=== PATIENT | male | born 1970 | race Two or more races ===

== ENCOUNTER 2025-05-09 18:09 | Inpatient (IN) | payer OTHER ==
[~2025-05-09] VITALS: Ht 167.6 cm; Wt 72.0 kg
--- NOTE | 2025-05-09 18:34 | ED.PDOC ---
General HPI Comments A 54 year-old male presents to the ED with a chief complaint of R testicular pain with associated swelling for X6 months. Patient states he is currently diagnosed with Hydrocele. Patient additionally states he lost his insurance and has not followed up with PCP or specialist. Patient has no further complaints at this time and otherwise denies further associated symptoms of N/V, fever, chills, abdominal pain, or hematuria. Patient states the testicle had gone down significantly until approximately one week ago when it started to get larger in and is now extremely large making it difficult to sit down. Chief Complaint: Testicle Pain Time Seen by MD: 18:23 Reviewed notes: Nurses Notes, Medications, Allergies Allergies: Coded Allergies: NO KNOWN ALLERGIES (Unverified , 05/09/25) Information Source: Patient Mode of Arrival: Ambulatory Severity: Moderate Timing: Months Duration: Since onset Prehospital treatment: None Onset: Spontaneous Symptoms: None History of: Other (Testicular hydrocele) Location male: R Scrotum Penile discharge: None Modifying factors: None associated signs and symptoms: Other (R sided testicular pain ) Past Medical History PAST MEDICAL HISTORY: Denies Past Medical History (Other): History of testicular hydrocele Surgical History: Denies all surgeries Family History Family History: Reviewed,noncontributory to illness, No family hx of Cancer, No family hx of DM, No family hx of Heart roxanna, No family hx of HTN, No family hx ofKidney roxanna, No family hx of Liver roxanna, No family hx of Lung roxanna, No family hx of Stroke Social History Smoker: Non-Smoker Alcohol: Denies ETOH Use Drugs: Denies Drug Use Lives In: Home Constitutional: denies: chills, diaphoresis, fatigue, fever, malaise, sweats, weakness, others EENTM: denies: blurred vision, double vision, ear bleeding, ear discharge, ear drainage, ear pain, ear ringing, eye pain, eye redness, hearing loss, mouth pain, mouth swelling, nasal discharge, nose bleeding, nose congestion, nose pain, photophobia, tearing, throat pain, throat swelling, voice changes, others Respiratory: denies: cough, hemoptysis, orthopnea, SOB at rest, shortness of breath, SOB with excertion, stridor, wheezing, others Cardiovascular: denies: chest pain, dizzy spells, diaphoresis, Dyspnea on exertion, edema, irregular heart beat, left arm pain, lightheadedness, palpitations, PND, syncope, others Gastrointestinal: denies: abdomen distended, abdominal pain, blood streaked bowels, constipated, diarrhea, dysphagia, difficulty swallowing, hematemesis, melena, nausea, poor appetite, poor fluid intake, rectal bleeding, rectal pain, vomiting, others Genitourinary: reports: testicle pain (Right Sided with Swelling ); denies: burning, dysuria, flank pain, frequency, hematuria, incontinence, penile discharge, penile sore, pain, testicle swelling, urgency, others Neurological: denies: dizziness, fainting, headache, left sided numbness, left sided weakness, numbness, paresthesia, pre-existing deficit, right sided numbness, right sided weakness, seizure, speech problems, tingling, tremors, weakness, others Musculoskeletal: denies: back pain, gout, joint pain, joint swelling, muscle pain, muscle stiffness, neck pain, others Integumetry: denies: bruises, change in color, change in hair/nails, dryness, laceration, lesions, lumps, rash, wounds, others Hematologic/Lymphatic: denies: anemia, blood clots, easy bleeding, easy bruising, swollen glands, others Endocrine: denies: excessive hunger, excessive sweating, excessive thirst, excessive urination, flushing, intolerance to cold, intolerance to heat, unexp lained weight gain, unexplained weight loss, others Psychiatric: denies: anxiety, bipolar disorder, depression, hopeless, panic disorder, schizophrenia, sleepless, suicidal, others All Other Systems: Reviewed and Negative Physical Exam General Appearance: Moderate Distress ([id number] distress due to right- sided testicular pain concerns.), Normal HEENT: Normal ENT Inspection, Pharynx Normal, TMs Normal Neck: Full Range of Motion, Non-Tender, Normal, Normal Inspection Respiratory: Chest Non-Tender, Lungs Clear, No Accessory Muscle Use, No Respiratory Distress, Normal Breath Sounds Cardiovascular: No Edema, No JVD, No Murmur, No Gallop, Normal Peripheral Pulses, Regular Rate/Rhythm Breast Exam: Deferred Gastrointestinal: No Organomegaly, Non Tender, No Pulsatile Mass, Normal Bowel Sounds, Soft Genitalia: Other (Patient has an extremely large and exquisitely tender right testicle without noted erythema. No definitive epididymitis noted. No penile discharge or noted chancres.) Pelvic: Deferred Rectal: Deferred Extremities: No calf tenderness, Normal capillary refill, Normal inspection, Normal range of motion, Non-tender, No pedal edema Neurologic: Alert, No Motor Deficits, Normal Affect, Normal Mood, No Sensory Deficits Cerebellar Function: Normal Reflexes: Normal Skin: Dry, Normal Color, Warm Lymphatic: No Adenopathy Was a procedure done? Was a procedure done?: No Differential Diagnosis Kidney stone (Female): N/A Penile/Scrotal: Foreign Body, Prostatitis, Testicular Torsion, Urolithiasis, Urinary Retention, Other (Hydrocele, epididymitis) X-Ray, Labs, Meds, VS Vital Signs Date Time Temp Pulse Resp B/P (MAP) Pulse Ox O2 Delivery O2 Flow Rate FiO2 05/09/25 20:41 98.9 86 19 127/99 (108) 96 98.9 05/09/25 20:41 86 19 96 Room Air 05/09/25 18:24 98.1 83 18 143/99 (114) 96 98.1 Lab Test 05/09/25 18:49 Range/Units White Blood Count 8.7 4.4-10.8 10^3/uL Red Blood Count 5.21 4.5-5.90 10^6/uL Hemoglobin 15.6 13.5-17.5 g/dL Hematocrit 45.9 41.0-53.0 % Mean Corpuscular Volume 88.1 80.0-100.0 fL Mean Corpuscular Hemoglobin 29.9 28.0-32.0 pg Mean Corpuscular Hemoglobin Concent 34.0 32.0-36.0 g/dL Red Cell Distribution Width 13.5 11.8-14.3 % Platelet Count 245 140-450 10^3/uL Mean Platelet Volume 7.9 6.9-10.8 fL Neutrophils (%) (Auto) 59.7 37.0-80.0 % Lymphocytes (%) (Auto) 27.9 10.0-50.0 % Monocytes (%) (Auto) 9.4 0.0-12.0 % Eosinophils (%) (Auto) 1.7 0.0-7.0 % Basophils (%) (Auto) 1.3 0.0-2.0 % Neutrophils # (Auto) 5.2 1.6-8.6 10 ^3/uL Lymphocytes # (Auto) 2.4 0.4-5.4 10 ^3/uL Monocytes # (Auto) 0.8 0-1.3 10 ^3/uL Eosinophils # (Auto) 0.1 0-0.8 10 ^3/uL Basophils # (Auto) 0.1 0-0.2 10 ^3/uL Nucleated Red Blood Cells 0.0 % Sodium Level 141 136-145 mmol/L Potassium Level 4.6 3.5-5.1 mmol/L Chloride Level 102 98-107 mmol/L Carbon Dioxide Level 30 20-31 mmol/L Anion Gap 9 5-15 Blood Urea Nitrogen 17 9-23 mg/dL Creatinine 0.89 0.700-1.30 mg/dL Glomerular Filtration Rate Calc 103 >90 mL/min BUN/Creatinine Ratio 19.1 10.0-20.0 Serum Glucose 107 H 74-106 mg/dL Calcium Level 9.8 8.7-10.4 mg/dL Total Bilirubin 0.4 0.2-1.0 mg/dL Aspartate Amino Transferase (AST) 42 H 13-40 U/L Alanine Aminotransferase (ALT) 79 H 7-40 U/L Alkaline Phosphatase 74 46-116 U/L Total Protein 7.2 5.7-8.2 g/dL Albumin 4.5 3.2-4.8 g/dL Current Medications Medications (Trade) Dose Ordered Sig/Patric Route Start Time Stop Time Status Last Admin Ketorolac Tromethamine (Toradol Injection) 30 mg ONCE ONCE IM 05/09/25 18:30 05/09/25 18:31 DC 05/09/25 20:31 X-Ray, Labs, Meds, VS Comment All studies reviewed in the ED were evaluated by me personally. Testicular ultrasound revealed a large right-sided hydrocele measuring 110 mL. No evidence of torsion, epididymitis or orchitis. This patient has no definitive were available follow up and therefore, patient will be admitted for urologic consult and possible surgical drainage of his significant right-sided hydrocele. Time of 1ST Reevaluation: 21:08 Reevaluation 1ST: Improved Consultation: PCP, Urology Patient Education/Counseling: Diagnosis, Treatment Family Education/Counseling: Diagnosis, Treatment, No Family Present Medical Screening: No EMC Exist At This Time SEPSIS Sepsis Screen Date sepsis recognized/suspect: May 09, 2025 Time Sepsis recognized/suspect: 1814 Recent Procedure: No On Antibiotic Therapy: No Respiratory Rate >20: No Heart Rate >90: No Temp<36 C (96.8 F) or >38.3 C: No SBP <90 or MAP <65 mmHG: No New Acute Mental Status Change: No Is the patient on CPAP, BIPAP,: No Physician Orders Testicular Ultrasound (05/09/25 18:20) Urinalysis (05/09/25 18:20) Vital Signs Date Time Temp Pulse Resp B/P (MAP) Pulse Ox O2 Delivery O2 Flow Rate FiO2 05/09/25 20:41 98.9 86 19 127/99 (108) 96 98.9 05/09/25 20:41 86 19 96 Room Air 05/09/25 18:24 98.1 83 18 143/99 (114) 96 98.1 Laboratory Tests Test 05/09/25 18:49 White Blood Count 8.7 10^3/uL (4.4-10.8) Medications Medications Dose Ordered Sig/Patric Route Start Time Stop Time Status Last Admin Dose Admin Ketorolac Tromethamine 30 mg ONCE ONCE IM 05/09/25 18:30 05/09/25 18:31 DC 05/09/25 20:31 Departure 1 Departure Time of Disposition: 21:08 Impression: Primary Impression: Hydrocele of testis Additional Impression: Intractable pain Disposition: ADMITTED INPATIENT Condition: Stable Discharged With: Self Critical Care Note Critical Care Time?: No Stability Stability form required: No Heart Score Heart Score: Heart Score Response (Comments) Value History N/A 0 EKG N/A 0 Age N/A 0 Risk Factors N/A 0 Troponin N/A 0 Total 0 I personally scribed for RODERICK VOSS PAC ([email or web address]) on 05/09/25 at 18:34. Electronically submitted by Heidi [email or web address]). RODERICK VOSS PAC May 09, 2025 18:34
[2025-05-09 18:58] LABS: Hematocrit 45.9 % (41.0-53.0); Hemoglobin 15.6 g/dL (13.5-17.5); Mean Corpuscular Hemoglobin 29.9 pg (28.0-32.0); Mean Corpuscular Volume 88.1 fL (80.0-100.0); Nucleated Red Blood Cells % 0.0 %
[2025-05-09 19:14] LABS: Alanine Aminotransferase 79 U/L (7-40); Albumin 4.5 g/dL (3.2-4.8); Alkaline Phosphatase 74 U/L (46-116); Anion Gap 9 (5-15); BUN/Creatinine Ratio 19.1 (10.0-20.0); Bilirubin, Total 0.4 mg/dL (0.2-1.0); Blood Urea Nitrogen 17 mg/dL (9-23); Calcium 9.8 mg/dL (8.7-10.4); Carbon Dioxide 30 mmol/L (20-31); Chloride 102 mmol/L (98-107); Glucose 107 mg/dL (74-106); Potassium 4.6 mmol/L (3.5-5.1); Sodium 141 mmol/L (136-145); Total Protein 7.2 g/dL (5.7-8.2)
--- NOTE | 2025-05-09 19:43 | DVH ---
ULTRASOUND OF SCROTUM AND CONTENTS. INDICATION: Right-sided testicular swelling COMPARISON: None TECHNIQUE: Multiple real-time grayscale sonographic and color and duplex Doppler images of the scrotu m and its contents were obtained. FINDINGS: RIGHT TESTICLE: Measures 5.2 X 3 X 2.3 cm. LARGE RIGHT HYDROCELE CONTAINS 810 ML OF FLUID. Right epididymis measures 18.4 mm LEFT TESTICLE: Measures 5 X 2.8 X 3.3 cm. LEFT EPIDIDYMIS MEASURES 12.7 MM THERE IS A 4 MM EPIDIDYMAL CYST. Both testicles demonstrate homogeneous echotexture without evidence of focal lesions. The right epididymal head measures 18.4 mm. The left epididymal head measures 12.7 mm. Subsequent color and duplex Doppler interrogation of the testes demonstrated symmetric normal vascula r flow to both testicles. No focal areas of hyperemia were seen. IMPRESSION: 1. No evidence of torsion, epididymitis, and/or orchitis. 2. Right testicle measures 5.2 cm in length. Left testicle measures 5 cm in length. 3. Large right hydrocele measuring 810 mL 4. Right epididymis 18.4 mm 5. Left epididymis measures 12.7 mm. It contains a 4 mm cyst.
[2025-05-09] MEDS: KETOROLAC TROMETH 60MG/2ML VIAL IM ONE (20:31)
[2025-05-09] MEDS: HYDROcodone-ACET 5/325MG TAB PO ONE (20:40)
[2025-05-09] MEDS ORDERED: MORPHINE SULFATE INJ 2 MG/ml SYRG IV PRN ×2 (21:45→22:30)
[2025-05-09] MEDS ORDERED: ONDANSETRON HCL 4 MG/2 ML VIAL IV PRN (21:45)
[2025-05-09] MEDS ORDERED: ACETAMINOPHEN 325 MG TAB PO PRN (21:45)
[2025-05-09] MEDS ORDERED: DOCUSATE SOD 100 MG CAP PO PRN (21:45)
[2025-05-09] MEDS ORDERED: HYDROcodone-ACET 5/325MG TAB PO PRN (21:45)
[2025-05-09 21:57] LABS: Urine Protein, UAD Negative (Negative)
[2025-05-09] MEDS: SODIUM CHLOR 0.9% PF (SALINE LOCK) 10ML VIAL/SYR IV SCH (22:16)
--- NOTE | 2025-05-09 22:19 | DVHHP2 ---
History of Present Illness Reason for Visit: Hydrocele of testis History of Present Illness The patient is a 54-year-old male with past medical history of testicular hydrocele who presented to [facility] ED with complaint of right testicular pain associated with swelling for the past 6 months. Patient reports he is currently diagnosed with hydrocele but lost his insurance and unable to follow-up with PCP or genitourinary specialist. Patient was seen and evaluated in the ED, laboratory data shows WBC 8.7, platelets 245, sodium 141, potassium 4.6, BUN 17, creatinine 0.89, glucose 107, calcium 9.8, AST 42, ALT 79, blood pressure 127/99, heart rate 86, temperature 98.7 F, O2 saturation 98% on room air. Testicular ultrasound revealing right testicular measuring 5.2 cm in length, left testicular measures 5 cm in length; large right hydrocele measuring 810 mL, right epididymis 18.4 mm, left epididymis measures 12.7 mm, eight contains a 4 mm cyst. Urology will follow the patient, please see medication orders section in the computer. On my assessment, patient denied chest pain, no headache, no dizziness, no shortness of breath, no abdominal pain, no diarrhea, no nausea, no vomiting, no fever, no chills. Patient was admitted for further evaluation and medical management. Past Medical History Testicular hydrocele Past Surgical History Denies all surgeries Family History Reviewed, noncontributory to the management of this case. Past Social History The patient lives at home, denies smoking, alcohol or illicit drugs abuse. Review of Systems Constitutional: No: Fever, Chills, Sweats, Weakness, Malaise, Other Eyes: No: Pain, Vision change, Conjunctivae inflammation, Eyelid inflammation, Other, Redness ENT: No: Ear pain, Ear discharge, Nose pain, Nose discharge, Nose congestion, Mouth pain, Mouth swelling, Throat pain, Throat swelling, Other Respiratory: No: Cough, Dry, Shortness of breath, SOB with excertion, Wheezing, Hemoptysis, Pleuritic Pain, Sputum, Wheezing, Other Cardiovascular: No: Chest Pain, Palpitations, Orthopnea, Paroxysmal Noc. Dyspnea, Edema, Lt Headedness, Other Gastrointestinal: No: Nausea, Vomiting, Abdominal Pain, Diarrhea, Constipation, Melena, Hematochezia, Other Genitourinary: No Dysuria, No Frequency, No Incontinence, No Hematuria, No Retention; Other (Testicular pain, right Sided with Swelling.) Musculoskeletal: No: other, neck pain, shoulder pain, arm pain, back pain, hand pain, leg pain, foot pain Skin: No: Rash, Lesions, Jaundice, Bruising, Other Neurological: No: Weakness, Numbness, Incoordination, Change in speech, Confusion, Seizures, Other Allergies: Coded Allergies: NO KNOWN ALLERGIES (Unverified , 05/09/25) Medications Current Medications Medications Dose Ordered Sig/Patric Route Start Time Stop Time Status Last Admin Dose Admin Sodium Chloride 10 ml Q8HR IV 05/09/25 22:00 05/09/25 22:16 10 ML Acetaminophen/ Hydrocodone Bitart 1 tab Q4HP PRN PO 05/09/25 21:45 Ondansetron HCl 4 mg Q4HP PRN IV 05/09/25 21:45 Docusate Sodium 100 mg BIDPRN PRN PO 05/09/25 21:45 Acetaminophen 650 mg Q6HP PRN PO 05/09/25 21:45 Morphine Sulfate 2 mg Q4HPRN PRN IV 05/09/25 21:45 Exam Vital Signs Vital Signs Date Time Temp Pulse Resp B/P (MAP) Pulse Ox O2 Delivery O2 Flow Rate FiO2 05/09/25 20:41 98.9 86 19 127/99 (108) 96 98.9 05/09/25 20:41 Room Air General Appearance: Alert, Oriented X3, Cooperative, No acute distress HEENT: Atraumatic, PERRLA, EOMI, Mucous membr. moist/pink Respiratory: Clear to auscultation, Normal air movement Cardiovascular: Regular rate, Normal S1, Normal S2, No murmurs Abdominal: Normal bowel sounds, Soft, No tenderness, No hepatospenomegaly, No masses Extremities: No clubbing, No cyanosis, No edema, Normal pulses, No tenderness/swelling Skin: No rashes, No breakdown, No significant lesion Neuro: Normal gait, Normal speech, Strength at 5/5 X4 ext, Normal tone, Sensation intact, Cranial nerves 3-12 NL, Reflexes 2+ Psych/Mental Status: Mental status NL, Mood NL Labs/Xrays Labs Test 05/09/25 20:28 05/09/25 18:49 Range/Units Urine Color Light-yellow Yellow Urine Clarity Clear Clear Urine pH 5.5 5.0-9.0 Urine Specific Belva 1.023 1.001-1.035 Urine Protein Negative Negative Urine Ketones Negative Negative Urine Blood Negative Negative /uL Urine Nitrite Negative Negative Urine Bilirubin Negative Negative Urine Urobilinogen Normal Negative mg/dL Urine Leukocyte Esterase Negative Negative /uL Urine RBC <1 0 - 3 /hpf Urine Microscopic WBC < 1 0-3 /HPF Urine Squamous Epithelial Cells None seen <5 /hpf Urine Bacteria Few H None Seen /hpf Urine Mucus Few None Seen Urine Glucose Normal Normal mg/dL White Blood Count 8.7 4.4-10.8 10^3/uL Red Blood Count 5.21 4.5-5.90 10^6/uL Hemoglobin 15.6 13.5-17.5 g/dL Hematocrit 45.9 41.0-53.0 % Mean Corpuscular Volume 88.1 80.0-100.0 fL Mean Corpuscular Hemoglobin 29.9 28.0-32.0 pg Mean Corpuscular Hemoglobin Concent 34.0 32.0-36.0 g/dL Red Cell Distribution Width 13.5 11.8-14.3 % Platelet Count 245 140-450 10^3/uL Mean Platelet Volume 7.9 6.9-10.8 fL Neutrophils (%) (Auto) 59.7 37.0-80.0 % Lymphocytes (%) (Auto) 27.9 10.0-50.0 % Monocytes (%) (Auto) 9.4 0.0-12.0 % Eosinophils (%) (Auto) 1.7 0.0-7.0 % Basophils (%) (Auto) 1.3 0.0-2.0 % Neutrophils # (Auto) 5.2 1.6-8.6 10 ^3/uL Lymphocytes # (Auto) 2.4 0.4-5.4 10 ^3/uL Monocytes # (Auto) 0.8 0-1.3 10 ^3/uL Eosinophils # (Auto) 0.1 0-0.8 10 ^3/uL Basophils # (Auto) 0.1 0-0.2 10 ^3/uL Nucleated Red Blood Cells 0.0 % Sodium Level 141 136-145 mmol/L Potassium Level 4.6 3.5-5.1 mmol/L Chloride Level 102 98-107 mmol/L Carbon Dioxide Level 30 20-31 mmol/L Anion Gap 9 5-15 Blood Urea Nitrogen 17 9-23 mg/dL Creatinine 0.89 0.700-1.30 mg/dL Glomerular Filtration Rate Calc 103 >90 mL/min BUN/Creatinine Ratio 19.1 10.0-20.0 Serum Glucose 107 H 74-106 mg/dL Calcium Level 9.8 8.7-10.4 mg/dL Total Bilirubin 0.4 0.2-1.0 mg/dL Aspartate Amino Transferase (AST) 42 H 13-40 U/L Alanine Aminotransferase (ALT) 79 H 7-40 U/L Alkaline Phosphatase 74 46-116 U/L Total Protein 7.2 5.7-8.2 g/dL Albumin 4.5 3.2-4.8 g/dL PATIENT: BOB DELGADO ACCT: [id number] UNIT: [id number] : 1970 LOC: ER ROOM / BED: / AGE / SEX: 54 / M ADM STATUS: REG ER SERVICE [id number] ORDERING PHYSICIAN: RODERICK VOSS PAC PROCEDURE(s): TESUS - TESTICULAR ULTRASOUND REASON: Right-sided testicular swelling ORDER NUMBER(s): [id number], ACCESSION NUMBER(s): [id number] ULTRASOUND OF SCROTUM AND CONTENTS. INDICATION: Right-sided testicular swelling COMPARISON: None TECHNIQUE: Multiple real-time grayscale sonographic and color and duplex Doppler images of the scrotum and its contents were obtained. FINDINGS: RIGHT TESTICLE: Measures 5.2 X 3 X 2.3 cm. LARGE RIGHT HYDROCELE CONTAINS 810 ML OF FLUID. Right epididymis measures 18.4 mm LEFT TESTICLE: Measures 5 X 2.8 X 3.3 cm. LEFT EPIDIDYMIS MEASURES 12.7 MM THERE IS A 4 MM EPIDIDYMAL CYST. Both testicles demonstrate homogeneous echotexture without evidence of focal lesions. The right epididymal head measures 18.4 mm. The left epididymal head measures 12.7 mm. Subsequent color and duplex Doppler interrogation of the testes demonstrated symmetric normal vascular flow to both testicles. No focal areas of hyperemia were seen. IMPRESSION: 1. No evidence of torsion, epididymitis, and/or orchitis. 2. Right testicle measures 5.2 cm in length. Left testicle measures 5 cm in length. 3. Large right hydrocele measuring 810 mL 4. Right epididymis 18.4 mm 5. Left epididymis measures 12.7 mm. It contains a 4 mm cyst. SEPSIS Sepsis Screen Date sepsis recognized/suspect: May 09, 2025 Time Sepsis recognized/suspect: 1814 Recent Procedure: No On Antibiotic Therapy: No Respiratory Rate >20: No Heart Rate >90: No Temp<36 C (96.8 F) or >38.3 C: No SBP <90 or MAP <65 mmHG: No New Acute Mental Status Change: No Is the patient on CPAP, BIPAP,: No Physician Orders Testicular Ultrasound (05/09/25 18:20) * Urology Consult (05/09/25 21:44) Allergies (05/09/25 21:44) Code Status (05/09/25 21:44) Sodium Chloride Lock (Saline Lock Ns) (05/09/25 22:00) Oxygen Per Hour (05/09/25 21:44) Hydrocodone-Acet 5/325mg Tab (Huron 5/32 (05/09/25 21:45) Ondansetron Hcl (Zofran) (05/09/25 21:45) Docusate Sodium Capsule (Colace Capsule) (05/09/25 21:45) Complete Blood Count (05/10/25 04:00) Comprehensive Metabolic Panel (05/10/25 04:00) Cardiac Diet-2gna,Lofat,Lochol (05/10/25 Breakfast) Condition: Serious (05/09/25 21:44) Acetaminophen Tablet (Tylenol Tablet) (05/09/25 21:45) Bedrest With Bathroom Privileg (05/09/25 21:44) Morphine Sulfate Injection (05/09/25 21:45) Sequential Compression Device (05/09/25 ) Saline Lock (05/09/25 22:02) Vital Signs Date Time Temp Pulse Resp B/P (MAP) Pulse Ox O2 Delivery O2 Flow Rate FiO2 05/09/25 20:41 98.9 86 19 127/99 (108) 96 98.9 05/09/25 20:41 86 19 96 Room Air 05/09/25 18:24 98.1 83 18 143/99 (114) 96 98.1 Laboratory Tests Test 05/09/25 18:49 White Blood Count 8.7 10^3/uL (4.4-10.8) Medications Medications Dose Ordered Sig/Patric Route Start Time Stop Time Status Last Admin Dose Admin Ketorolac Tromethamine 30 mg ONCE ONCE IM 05/09/25 18:30 05/09/25 18:31 DC 05/09/25 20:31 30 MG Sodium Chloride 10 ml Q8HR IV 05/09/25 22:00 05/09/25 22:16 10 ML Assessment/Plan Assessment/Plan Hydrocele of testis Testicular pain Intractable pain Elevated liver enzymes Plan 1. Admit to med surge unit 2. Breathing treatment 3. Pain control management 4. Management of fluids and electrolytes 5. Consultation for Urology/hospitalist 6. Diagnostic tests testicular ultrasound 7. DVT prophylaxis-on SCDs 8. Repeat labs CBC, CMP in a.m. 9. Continue with current medical management 10. Treatment plan discussed with patient and RN. Patient verbalized understanding. Plan discussed with: Patient, Other (RN) My Orders Orders - NESTOR CORTEZ DNP Procedure Category Date Status Time * Urology Consult CONS 05/09/25 Transmitted 21:44 Allergies DAVID 05/09/25 In Process 21:44 Code Status CODE 05/09/25 Transmitted 21:44 Sodium Chloride Lock PHA 05/09/25 In Process (Saline Lock Ns) 22:00 Oxygen Per Hour RT 05/09/25 Transmitted 21:44 Hydrocodone-Acet PHA 05/09/25 In Process 5/325mg Tab (Huron 21:45 Ondansetron Hcl PHA 05/09/25 In Process (Zofran) 21:45 Docusate Sodium PHA 05/09/25 In Process Capsule (Colace 21:45 Complete Blood Count LAB 05/10/25 Verified 04:00 Comprehensive LAB 05/10/25 Verified Metabolic Panel 04:00 Cardiac DIET 05/10/25 Transmitted Diet-2gna,Lofat,Lochol Breakfast Condition: Serious DAVID 05/09/25 In Process 21:44 Acetaminophen Tablet PHA 05/09/25 In Process (Tylenol Tablet) 21:45 Bedrest With Bathroom DAVID 05/09/25 In Process Privileg 21:44 Morphine Sulfate PHA 05/09/25 In Process Injection 21:45 Sequential DAVID 05/09/25 In Process Compression Device Saline Lock DAVID 05/09/25 In Process 22:02 Problem List: (1) Hydrocele of testis (2) Testicular pain (3) Intractable pain (4) Elevated liver enzymes Date of Service: May 09, 2025 Billing Provider: NESTOR CORTEZ DNP Common Visit Codes: [id number] INP/OBS CARE (HIGH) NESTOR CORTEZ DNP May 09, 2025 22:19
[2025-05-09] MEDS ORDERED: NITROGLYCERIN 0.4 MG SL TAB SL PRN (22:30)
[2025-05-09 23:28] VITALS: BP 120/79; PULSE 64; RESP 18; TEMP 98.1; O2SAT 96
[2025-05-09 23:29] VITALS: BP 144/92; PULSE 81; RESP 16; TEMP 98.1; O2SAT 98
[2025-05-10] VITALS (8 sets, daily range): BP systolic 120–127; BP diastolic 70–85; PULSE 60–83; RESP 14–18; TEMP 97.9–98.4; O2SAT 96–100
[2025-05-10 06:25] LABS: Hematocrit 42.7 % (41.0-53.0); Hemoglobin 14.9 g/dL (13.5-17.5); Mean Corpuscular Hemoglobin 30.4 pg (28.0-32.0); Mean Corpuscular Volume 86.8 fL (80.0-100.0); Nucleated Red Blood Cells % 0.4 %
[2025-05-10 06:41] LABS: Albumin 4.1 g/dL (3.2-4.8); Alkaline Phosphatase 59 U/L (46-116); Anion Gap 8 (5-15); BUN/Creatinine Ratio 18.4 (10.0-20.0); Blood Urea Nitrogen 16 mg/dL (9-23); Calcium 9.9 mg/dL (8.7-10.4); Carbon Dioxide 28 mmol/L (20-31); Chloride 104 mmol/L (98-107); Potassium 3.8 mmol/L (3.5-5.1); Sodium 140 mmol/L (136-145); Total Protein 6.4 g/dL (5.7-8.2)
[2025-05-10 06:42] LABS: Bilirubin, Total 0.5 mg/dL (0.2-1.0)
[2025-05-10 06:45] LABS: Alanine Aminotransferase 64 U/L (7-40); Glucose 116 mg/dL (74-106)
--- NOTE | 2025-05-10 12:27 | DVHPN2 ---
Subjective I am assuming the care of the patient from today onwards. Patient denies any testicular pain. Reviewed: Care Plan Changes from previous H/P or p: No Changes Eyes: No Pain, No Vision change, No Conjunctivae inflammation, No Eyelid inflammation, No Other, No Redness ENT: No Ear pain, No Ear discharge, No Nose pain, No Nose discharge, No Nose congestion, No Mouth pain, No Mouth swelling, No Throat pain, No Throat swelling, No Other Cardiovascular: No Chest Pain, No Palpitations, No Orthopnea, No Paroxysmal Noc. Dyspnea, No Edema, No Lt Headedness, No Other Respiratory: No Cough, No Dry, No Shortness of breath, No SOB with excertion, No Wheezing, No Hemoptysis, No Pleuritic Pain, No Sputum, No Other Gastrointestinal: No Nausea, No Vomiting, No Abdominal Pain, No Diarrhea, No Constipation, No Melena, No Hematochezia, No Other Genitourinary: No Dysuria, No Frequency, No Incontinence, No Hematuria, No Retention; Other (Testicular pain, right Sided with Swelling.) Musculoskeletal: No other, No neck pain, No shoulder pain, No arm pain, No back pain, No hand pain, No leg pain, No foot pain Skin: No Rash, No Lesions, No Jaundice, No Bruising, No Other Objective Vitals Vital Signs Date Time Temp Pulse Resp B/P (MAP) Pulse Ox O2 Delivery O2 Flow Rate FiO2 05/10/25 08:47 98.3 82 14 127/70 (89) 97 98.3 05/09/25 23:29 Room Air* 0 21 Intake/Output Intake and Output 05/10/25 07:00 Intake Total 400 ml Balance 400 ml Intake Oral 400 ml # Voids 1 Exam HEENT pupils are reactive Neck is supple CV is S1-S2 regular rate and rhythm Respiratory bilateral clear GI positive bowel sound Extremity no edema [employer] no motor deficit Genitourinary examination: Right testicle swelling without any redness or tenderness. Medications Current Medications Medications Dose Ordered Sig/Patric Route Start Time Stop Time Status Last Admin Dose Admin Sodium Chloride 10 ml Q8HR IV 05/09/25 22:00 05/10/25 06:11 10 ML Acetaminophen/ Hydrocodone Bitart 1 tab Q4HP PRN PO 05/09/25 21:45 Ondansetron HCl 4 mg Q4HP PRN IV 05/09/25 21:45 Docusate Sodium 100 mg BIDPRN PRN PO 05/09/25 21:45 Acetaminophen 650 mg Q6HP PRN PO 05/09/25 21:45 Morphine Sulfate 2 mg Q4HPRN PRN IV 05/09/25 21:45 Nitroglycerin 0.4 mg Q5MINP PRN SL 05/09/25 22:30 Morphine Sulfate 2 mg Q30M PRN IV 05/09/25 22:30 Laboratory Results Laboratory Tests 05/10/25 05:03 Chemistry Test 05/09/25 18:49 05/10/25 05:03 Albumin 4.5 g/dL (3.2-4.8) 4.1 g/dL (3.2-4.8) Calcium Level 9.8 mg/dL (8.7-10.4) 9.9 mg/dL (8.7-10.4) Total Protein 7.2 g/dL (5.7-8.2) 6.4 g/dL (5.7-8.2) LFT Test 05/09/25 18:49 05/10/25 05:03 Alanine Aminotransferase (ALT) 79 U/L (7-40) H 64 U/L (7-40) H Alkaline Phosphatase 74 U/L (46-116) 59 U/L (46-116) Aspartate Amino Transferase (AST) 42 U/L (13-40) H 34 U/L (13-40) Total Bilirubin 0.4 mg/dL (0.2-1.0) 0.5 mg/dL (0.2-1.0) Urinalysis Test 05/09/25 20:28 Urine Color Light-yellow (Yellow) Urine Clarity Clear (Clear) Urine pH 5.5 (5.0-9.0) Urine Specific [place] 1.023 (1.001-1.035) Urine Protein Negative (Negative) Urine Ketones Negative (Negative) Urine Blood Negative /uL (Negative) Urine Nitrite Negative (Negative) Urine Bilirubin Negative (Negative) Urine Urobilinogen Normal mg/dL (Negative) Urine Leukocyte Esterase Negative /uL (Negative) Urine RBC <1 /hpf (0 - 3) Urine Microscopic WBC < 1 /HPF (0-3) Urine Squamous Epithelial Cells None seen /hpf (<5) Urine Bacteria Few /hpf (None Seen) H Urine Mucus Few (None Seen) Urine Glucose Normal mg/dL (Normal) Assessment/Plan Assessment/Plan 54-year-old male with a known history of chronic swelling of the right testis for last six months who initially presented to hospital with a testicular pain found to have 1. Large testicular hydrocele right side, no clinical evidence of torsion or orchitis/epididymitis 2. Testicular pain -continue pain meds, Urology consultation. Plan discussed with: Patient Date of Service: May 10, 2025 Billing Provider: TANA MARTINEZ MD Common Visit Codes: [id number] INP/OBS CARE(MOD) TANA MARTINEZ MD May 10, 2025 12:27
[2025-05-11 01:00] VITALS: BP_SYST 118; BP_SYST 120; BP_DIAS 76; BP_DIAS 85; PULSE 68; PULSE 75; RESP 18; TEMP 98; TEMP 98.3; O2SAT 100; O2SAT 99
[2025-05-11 05:00] VITALS: BP 117/85; PULSE 64; RESP 18; TEMP 98; O2SAT 96
[2025-05-11 09:00] VITALS: BP 135/83; PULSE 60; RESP 17; TEMP 97.9; O2SAT 98
[2025-05-11 13:00] VITALS: BP 149/93; PULSE 78; RESP 17; TEMP 98; O2SAT 97
--- NOTE | 2025-05-11 16:51 | DVHDS2 ---
Discharge Summary Date of Admission May 09, 2025 at 22:18 Date of Discharge: May 11, 2025 Labs/Diagnostic Data: Laboratory Results Test 05/10/25 05:03 05/09/25 20:28 White Blood Count 6.0 10^3/uL (4.4-10.8) Red Blood Count 4.91 10^6/uL (4.5-5.90) Hemoglobin 14.9 g/dL (13.5-17.5) Hematocrit 42.7 % (41.0-53.0) Mean Corpuscular Volume 86.8 fL (80.0-100.0) Mean Corpuscular Hemoglobin 30.4 pg (28.0-32.0) Mean Corpuscular Hemoglobin Concent 35.0 g/dL (32.0-36.0) Red Cell Distribution Width 13.6 % (11.8-14.3) Platelet Count 211 10^3/uL (140-450) Mean Platelet Volume 8.6 fL (6.9-10.8) Neutrophils (%) (Auto) 59.2 % (37.0-80.0) Lymphocytes (%) (Auto) 30.8 % (10.0-50.0) Monocytes (%) (Auto) 7.5 % (0.0-12.0) Eosinophils (%) (Auto) 1.9 % (0.0-7.0) Basophils (%) (Auto) 0.6 % (0.0-2.0) Neutrophils # (Auto) 3.6 10 ^3/uL (1.6-8.6) Lymphocytes # (Auto) 1.9 10 ^3/uL (0.4-5.4) Monocytes # (Auto) 0.5 10 ^3/uL (0-1.3) Eosinophils # (Auto) 0.1 10 ^3/uL (0-0.8) Basophils # (Auto) 0 10 ^3/uL (0-0.2) Nucleated Red Blood Cells 0.4 % Sodium Level 140 mmol/L (136-145) Potassium Level 3.8 mmol/L (3.5-5.1) Chloride Level 104 mmol/L (98-107) Carbon Dioxide Level 28 mmol/L (20-31) Anion Gap 8 (5-15) Blood Urea Nitrogen 16 mg/dL (9-23) Creatinine 0.87 mg/dL (0.700-1.30) Glomerular Filtration Rate Calc 104 mL/min (>90) BUN/Creatinine Ratio 18.4 (10.0-20.0) Serum Glucose 116 mg/dL (74-106) Calcium Level 9.9 mg/dL (8.7-10.4) Total Bilirubin 0.5 mg/dL (0.2-1.0) Aspartate Amino Transferase (AST) 34 U/L (13-40) Alanine Aminotransferase (ALT) 64 U/L (7-40) Alkaline Phosphatase 59 U/L (46-116) Total Protein 6.4 g/dL (5.7-8.2) Albumin 4.1 g/dL (3.2-4.8) Urine Color Light-yellow (Yellow) Urine Clarity Clear (Clear) Urine pH 5.5 (5.0-9.0) Urine Specific [place] 1.023 (1.001-1.035) Urine Protein Negative (Negative) Urine Ketones Negative (Negative) Urine Blood Negative /uL (Negative) Urine Nitrite Negative (Negative) Urine Bilirubin Negative (Negative) Urine Urobilinogen Normal mg/dL (Negative) Urine Leukocyte Esterase Negative /uL (Negative) Urine RBC <1 /hpf (0 - 3) Urine Microscopic WBC < 1 /HPF (0-3) Urine Squamous Epithelial Cells None seen /hpf (<5) Urine Bacteria Few /hpf (None Seen) Urine Mucus Few (None Seen) Urine Glucose Normal mg/dL (Normal) Other Laboratory Tests 05/10/25 05:03 Brief Hx & Hospital Course: 54-year-old male with a known history of chronic swelling of the right testis for last six months who initially presented to hospital with a testicular pain found to have large testicular hydrocele on the right side. Patient does not have any evidence of torsion or orchitis or epididymitis. Urology will evaluate and we will cleared the patient to be discharged. Patient needs outpatient follow up with the Urology. Condition at Discharge: Stable Final Diagnosis/Problems List 54-year-old male with a known history of chronic swelling of the right testis for last six months who initially presented to hospital with a testicular pain found to have 1. Large testicular hydrocele right side, no clinical evidence of torsion or orchitis/epididymitis 2. Testicular pain Discharge Disposition: Home SNF Discharge Will this Physician continue t: No Discharge Instruct/Medications Diet: Regular Activity: No Restrictions, As Tolerated Follow Up/Referral: Follow up with the PCP in 1-2 weeks Follow up with the Urology in 1-2 weeks for outpatient surgical intervention for higher dosage. No Active Prescriptions or Reported Meds Discharge Statement: "Patient was advised to return to the ER or call 911 if any headaches, dizziness, shortness of breath, chest pain, abdominal pain, bleeding, fevers, or worsening of medical condition. Patient was counseled about treatment plan, medications, possible side effects, patientverbalized understanding. All questions were answered to the best of my ability. This discharge took greater then 30 minutes in planning, reviewing documentation, counseling the patient, and discussing with other team members." ASSESSMENT ASSESSMENT Assessment 54-year-old male with a known history of chronic swelling of the right testis for last six months who initially presented to hospital with a testicular pain found to have 1. Large testicular hydrocele right side, no clinical evidence of torsion or orchitis/epididymitis 2. Testicular pain Date of Service: May 11, 2025 Billing Provider: TANA MARTINEZ MD Common Visit Codes: [id number] DISCH DAY >30min TANA MARTINEZ MD May 11, 2025 16:51
[2025-05-11 17:00] VITALS: BP 131/88; PULSE 80; RESP 17; TEMP 97.7; O2SAT 96
[2025-05-11] MEDS ORDERED: CEPH500T PO (17:12)
[2025-05-11 18:13] VITALS: BP 131/88; PULSE 80; RESP 17; TEMP 97.7; O2SAT 96
--- NOTE | 2025-05-12 08:55 | DVHINCON2 ---
Date of service: May 11, [address] Martinez Reason for Consultation hydrocele History of Present Illness History Source: Patient, Spouse/Significant Other, Family, MD Notes, Cigar Roller Exam Limitations: Language barrier HPI 54 yo male with right hydrocele for months. No urinary complaints Home Meds Active Scripts Cephalexin Monohydrate (Cephalexin) 500 Mg Tab, 1 TAB PO QID for 7 Days, #28 TAB Prov:TANA MARTINEZ MD 05/11/25 Past Medical History Patient Family History: Diabetes mellitus G8 MOTHER G8 FATHER Review of Systems Genitourinary: Pain H&P Exam Vital Signs Vital Signs Date Time Temp Pulse Resp B/P (MAP) Pulse Ox O2 Delivery O2 Flow Rate FiO2 05/11/25 18:13 97.7 80 17 96 05/11/25 17:00 131/88 (102) 05/11/25 08:00 Room Air* 0 21 General Appeara: Well developed, Well nourished, Normal Appearance, Mild distress Male Genital Exam: Other (righ hydrocele) Neuro/Mental St: Alert, Oriented Appearance: Appropriate appearance, Appropriate insight Eye contact/ Speech: Cooperative, Good eye contact, Normal speech Skin Exam: Normal inspection, Normal color, Warm/dry Labs/Xrays [place] [id number] Ph: [phone] DIAGNOSTIC IMAGING Diagnostic Imaging Report : [id number] Signed PATIENT: BOB DELGADO ACCT: [id number] UNIT: [id number] : 1970 LOC: ER ROOM / BED: / AGE / SEX: 54 / M ADM STATUS: REG ER SERVICE [id number] ORDERING PHYSICIAN: RODERICK VOSS PAC PROCEDURE(s): TESUS - TESTICULAR ULTRASOUND REASON: Right-sided testicular swelling ORDER NUMBER(s): [id number], ACCESSION NUMBER(s): [id number] ULTRASOUND OF SCROTUM AND CONTENTS. INDICATION: Right-sided testicular swelling COMPARISON: None TECHNIQUE: Multiple real-time grayscale sonographic and color and duplex Doppler images of the scrotum and its contents were obtained. FINDINGS: RIGHT TESTICLE: Measures 5.2 X 3 X 2.3 cm. LARGE RIGHT HYDROCELE CONTAINS 810 ML OF FLUID. Right epididymis measures 18.4 mm LEFT TESTICLE: Measures 5 X 2.8 X 3.3 cm. LEFT EPIDIDYMIS MEASURES 12.7 MM THERE IS A 4 MM EPIDIDYMAL CYST. Both testicles demonstrate homogeneous echotexture without evidence of focal lesions. The right epididymal head measures 18.4 mm. The left epididymal head measures 12.7 mm. Subsequent color and duplex Doppler interrogation of the testes demonstrated symmetric normal vascular flow to both testicles. No focal areas of hyperemia were seen. IMPRESSION: 1. No evidence of torsion, epididymitis, and/or orchitis. 2. Right testicle measures 5.2 cm in length. Left testicle measures 5 cm in length. 3. Large right hydrocele measuring 810 mL 4. Right epididymis 18.4 mm 5. Left epididymis measures 12.7 mm. It contains a 4 mm cyst. ATED BY: MELISSA GARCÍA Jr., DO DICTATED DATE/TIME: 05/09/251939 SIGNED BY: MELISSA GARCÍA Jr., SIGNED DATE/TIME: 05/09/251939 CC: Labs Test 05/10/25 05:03 05/09/25 20:28 Range/Units White Blood Count 6.0 # 4.4-10.8 10^3/uL Red Blood Count 4.91 4.5-5.90 10^6/uL Hemoglobin 14.9 13.5-17.5 g/dL Hematocrit 42.7 41.0-53.0 % Mean Corpuscular Volume 86.8 80.0-100.0 fL Mean Corpuscular Hemoglobin 30.4 28.0-32.0 pg Mean Corpuscular Hemoglobin Concent 35.0 32.0-36.0 g/dL Red Cell Distribution Width 13.6 11.8-14.3 % Platelet Count 211 140-450 10^3/uL Mean Platelet Volume 8.6 6.9-10.8 fL Neutrophils (%) (Auto) 59.2 37.0-80.0 % Lymphocytes (%) (Auto) 30.8 10.0-50.0 % Monocytes (%) (Auto) 7.5 0.0-12.0 % Eosinophils (%) (Auto) 1.9 0.0-7.0 % Basophils (%) (Auto) 0.6 0.0-2.0 % Neutrophils # (Auto) 3.6 1.6-8.6 10 ^3/uL Lymphocytes # (Auto) 1.9 0.4-5.4 10 ^3/uL Monocytes # (Auto) 0.5 0-1.3 10 ^3/uL Eosinophils # (Auto) 0.1 0-0.8 10 ^3/uL Basophils # (Auto) 0 0-0.2 10 ^3/uL Nucleated Red Blood Cells 0.4 % Sodium Level 140 136-145 mmol/L Potassium Level 3.8 3.5-5.1 mmol/L Chloride Level 104 98-107 mmol/L Carbon Dioxide Level 28 20-31 mmol/L Anion Gap 8 5-15 Blood Urea Nitrogen 16 9-23 mg/dL Creatinine 0.87 0.700-1.30 mg/dL Glomerular Filtration Rate Calc 104 >90 mL/min BUN/Creatinine Ratio 18.4 10.0-20.0 Serum Glucose 116 H 74-106 mg/dL Calcium Level 9.9 8.7-10.4 mg/dL Total Bilirubin 0.5 0.2-1.0 mg/dL Aspartate Amino Transferase (AST) 34 13-40 U/L Alanine Aminotransferase (ALT) 64 H 7-40 U/L Alkaline Phosphatase 59 46-116 U/L Total Protein 6.4 5.7-8.2 g/dL Albumin 4.1 3.2-4.8 g/dL Urine Color Light-yellow Yellow Urine Clarity Clear Clear Urine pH 5.5 5.0-9.0 Urine Specific [place] 1.023 1.001-1.035 Urine Protein Negative Negative Urine Ketones Negative Negative Urine Blood Negative Negative /uL Urine Nitrite Negative Negative Urine Bilirubin Negative Negative Urine Urobilinogen Normal Negative mg/dL Urine Leukocyte Esterase Negative Negative /uL Urine RBC <1 0 - 3 /hpf Urine Microscopic WBC < 1 0-3 /HPF Urine Squamous Epithelial Cells None seen <5 /hpf Urine Bacteria Few H None Seen /hpf Urine Mucus Few None Seen Urine Glucose Normal Normal mg/dL Assessment/Plan Problem List: (1) Hydrocele of testis Plan sterile aspiration of 750 mls serous fluid from right scrotum. outpt hydrocelectomy to be arranged Plan discussed with: Patient, Spouse, Daughter, Other AD YOUNG NP May 12, 2025 08:55
== END 2025-05-11 18:53 | disposition home or self-care (01) | DRG 730 ==
LOC: ER 18:09 → OVERFLOW 22:18 → WEST WING 22:19
PROVIDERS: ADMIT Hospitalist; ATTEND Hospitalist
DX: N43.2 Other hydrocele (principal); R74.8 Abnormal levels of other serum enzymes; E11.9 Type 2 diabetes mellitus without complications
CPT/HCPCS: 36415; 76870; 80053; 81001; 85025; 96372; G0378; J1885